=== PATIENT | female | born 1955 | race Caucasian/White ===

== ENCOUNTER → 2018-02-13 | Day surgery (SDC) | payer OTHER ==
[~2018-02-13] MED LIST: ASPIR 8181 MG PO; AZOR 5-20 MG T1 EACH PO; EPHEDRINE SULFATE INJ 50 MG/10 ML SYR IV ONE; FENTANYL CITRATE/PF 100MCG/2 ML INJ IV ONE; FLUOXETINE HCL20 M1 PO; GABAPENTIN600 MG PO; HYOSCYAMINE SULFATE 0.5 MG/ML INJ IV ONE; LIDOCAINE HCL 2% LOCAL INJ 5 ML SDV VIAL INJ ONE; METOPROLOL SUC100 MG PO; MIDAZOLAM HCL 2 MG/2 ML VIAL INJ ONE; NORCO 5-325 TA1 EACH PO; PANTOPRAZOLE 40 MG 10ML VIAL ONE; PROPOFOL IV EMULSION 10 MG/ML 50 ML VIAL IV ONE; VYTORIN 10-201 EACH PO
[2018-02-13 12:27] VITALS: BP 129/86
[2018-02-13 12:59] LABS: WBC,FECAL (FECAL LACTOFERRIN) NEGATIVE (NEGATIVE)
[2018-02-13 13:54] LABS: C DIFFICILE TOXIN A&B AMP PROB NEGATIVE (NEGATIVE)
--- NOTE | 2018-02-13 14:47 | Operative Report ---
DATE OF PROCEDURE: February 13, 2018 REFERRING PHYSICIAN: Kana Garcia MD PROCEDURES PERFORMED 1. Esophagogastroduodenoscopy. 2. Colonoscopy with polypectomy. INDICATIONS FOR EGD: Upper abdominal pain, nausea and vomiting. INDICATIONS FOR COLONOSCOPY: Chronic diarrhea and marked weight loss. MEDICATION: Patient was done under MAC. Please see anesthesiologist's note. PROCEDURE: With the patient in the left lateral decubitus position, the flexible fiberoptic Olympus gastroscope was introduced into the esophagus under direct visualization without any difficulty. There was some patchy erythema noted in the distal esophagus. A minute nodule was noted at the GE junction that was biopsied. The scope was then advanced with ease into the stomach. The mucosa overlying the antrum and the body revealed some patchy erythema and low-grade to moderate edema, and biopsies were obtained and sent to stain for H. pylori. The pyloric channel was ulcerated and strictured, and it could not be traversed with the scope. It was dilated to size 20 mm per TTS balloon dilators. It was then traversed with ease with the scope, which was advanced all the way to the 2nd portion of the duodenum. Biopsies were obtained from the proximal 2nd portion to rule out sprue. The scope was then withdrawn back into the stomach and retroflexed. The mucosa overlying the fundus and the cardia appeared to be within normal limits. The scope was then straightened out. The stomach was decompressed. Scope was subsequently withdrawn. Patient tolerated the procedure well. IMPRESSION 1. Distal esophagitis, mild. 2. Nodule at gastroesophageal junction, biopsied. 3. Gastritis, biopsied. Biopsies sent to stain for H. pylori. 4. Pyloric channel stricture, ulcerated, dilated to size 20 mm per TTS balloon dilators. 5. Rule out sprue. PLAN: Follow up histology. Initiate Protonix 40 mg 1 p.o. q.a.m. a.c. Patient might benefit from a re-evaluation of the ulcerated stricture after 2 months of therapy. The patient was then turned around. After adequate lubrication of the anal canal, a flexible fiberoptic Olympus colonoscope was inserted into the rectum with ease and advanced all the way to the cecum. It was then withdrawn slowly. Mucosa overlying the ascending, transverse, descending, and the sigmoid colon revealed some mild diffuse inflammatory changes, and random biopsies were obtained. One polyp was snared from the transverse colon. Diverticular disease was noted to involve the distal descending and sigmoid colon. Five polyps were hot biopsied from the sigmoid. Two polyps were hot biopsied from the rectum. The scope was then retroflexed into the distal rectum, and small internal hemorrhoids were noted, none of which is actively bleeding. The scope was then straightened out. It was subsequently withdrawn after securing an adequate stool specimen that was sent for the appropriate stool studies. Patient tolerated the procedure well. IMPRESSION 1. Colitis, mild. Diffuse random biopsies obtained. 2. Transverse colon polyp, snared. 3. Diverticulosis. 4. Sigmoid colon polyps times 5, hot biopsied. 5. Rectal polyps times 2, hot biopsied. 6. Internal hemorrhoids, none actively bleeding. PLAN: Follow up histology. Follow up stool studies. Initiate VSL #3 one p.o. daily and Bentyl 10 mg 1 p.o. t.i.d. Patient might benefit from a followup colonoscopy in 3 years. Job#: [id number] cc:KANA GARCIA MD
== END | disposition home or self-care (01) ==
LOC: OR 07:54
PROVIDERS: ATTEND Internal Medicine Gastroenterology
DX: K52.9 Noninfective gastroenteritis and colitis, unspecified (principal); K63.5 Polyp of colon; K62.1 Rectal polyp; K29.00 Acute gastritis without bleeding; K31.1 Adult hypertrophic pyloric stenosis; K29.50 Unspecified chronic gastritis without bleeding; B96.81 Helicobacter pylori [H. pylori] as the cause of diseases classified elsewhere; K31.89 Other diseases of stomach and duodenum; K21.0 Gastro-esophageal reflux disease with esophagitis; K22.70 Barrett's esophagus without dysplasia; K57.30 Diverticulosis of large intestine without perforation or abscess without bleeding; K64.8 Other hemorrhoids; R63.4 Abnormal weight loss; I10 Essential (primary) hypertension; M54.9 Dorsalgia, unspecified; I44.0 Atrioventricular block, first degree; E78.00 Pure hypercholesterolemia, unspecified; Z72.0 Tobacco use; F41.9 Anxiety disorder, unspecified; F32.9 Major depressive disorder, single episode, unspecified; Z01.810 Encounter for preprocedural cardiovascular examination; Z88.6 Allergy status to analgesic agent
CPT/HCPCS: 43239; 43245; 45384; 45385; 83630; 83993; 87045; 87177; 87328; 87493; 93005; J1980; J2001; J2250; 45380

== ENCOUNTER 2018-04-20 15:16 | Inpatient (IN) | payer OTHER ==
[~2018-04-20] VITALS: Ht 170.2 cm; Wt 82.6 kg
[~2018-04-20 15:16] MED LIST changes: -AMLODIPINE PO; -ASPIRIN CHEW81 MG PO; -EZETIMIBE PO; -FENTANYL CITRATE/PF 100MCG/2 ML INJ ONE; -HYDROCODON-ACE1 EA12 PO; -HYDROMORPHO1 MG/1 ML IV; -MIDAZOLAM HCL 2 MG/2 ML VIAL ONE; -OLMESARTAN PO; -PANTOPRAZOLE 40 MG 10ML VIAL ONE; -PANTOPRAZOLE SO40 MG PO; -PROPOFOL IV EMULSION 10 MG/ML 50 ML VIAL ONE; -SIMVASTATIN PO
--- OUTSIDE RECORDS SUMMARY | 2018-04-20 15:18 | XMS REPORT ---
Author Author [facility] Address Unknown Phone Unavailable Care Team Providers Care Religion Teacher Name Role Phone PONCHO HARRISON Unavailable Unavailable Problems This patient has no known problems. Allergies, Adverse Reactions, Alerts This patient has no known allergies or adverse reactions. Medications This patient has no known medications. Results Test Description Test Time Test Comments Text Results Atomic Results Result Comments ABDOMEN-1VIEW (KUB) 2018-04-20 09:13:00 [place] [address] Patient Name: BENITO GILLETTE MR #: [id number] : 1955 Age/Sex: 62/F Req #: [id number] Adm Physician: Ordered by: PONCHO HARRISON MD Report #: [id number] Location: OR Room/Bed: Procedure: [id number] DX/ABDOMEN-1VIEW (KUB) Exam Date: 04/20/18 Exam Time: 0850 REPORT STATUS: Signed Abdomen/KUB INDICATION: Postop post pyloric channel dilation [id number] patient in [facility] bay 12 COMPARISON: None. FINDINGS: Portable, supine image obtained at 0848 hours. Medical Devices: Cholecystectomy clips Bowel: There is air throughout the small bowel and large bowel without dilatation. There is mild gaseous distention of the stomach. No pneumatosis. Free air: None Calcifications: None Organomegaly: None Bones: Mild degenerative changes of the spine IMPRESSION: Unremarkable bowel gas pattern. No pneumatosis or pneumoperitoneum. Signed by: Dr. Joaquim Escalera MD on 04/20/2018 9:15 AM Dictated By: JOAQUIM ESCALERA MD 4 Transcribed By: JULIANO on 04/20/18914 COPY TO: PONCHO HARRISON MD
--- OUTSIDE RECORDS SUMMARY | 2018-04-20 15:18 | XMS REPORT | Clinical Summary ---
Author Author [facility] Address Unknown Phone Unavailable Care Team Providers Care Pyrometallurgical Engineer Name Role Phone Kana Campos MD PCP [...] Taken Vital Sign Reading 03/27/2018 7:00 PM TIRE BLADDER MAKER Blood Pressure 147/81 03/27/2018 7:00 PM TIRE BLADDER MAKER Pulse 50 03/27/2018 7:00 PM TIRE BLADDER MAKER Temperature 36.3 C (97.4 F) 03/27/2018 7:00 PM TIRE BLADDER MAKER Respiratory Rate 20 03/27/2018 7:00 PM TIRE BLADDER MAKER Oxygen Saturation 98% - Inhaled Oxygen - Concentration 03/27/2018 5:09 PM TIRE BLADDER MAKER Weight 72.6 kg (160 lb) 03/27/2018 5:09 PM TIRE BLADDER MAKER Height 170.2 cm (5' 7") 03/27/2018 5:09 PM TIRE BLADDER MAKER Body Mass Index 25.06 Plan of Treatment Health Maintenance Due Date Last Done Comments CERVICAL CANCER SCREENING 1974 BREAST CANCER SCREENING 12/17/2003 COLON CANCER SCREENING 12/17/2003 SHINGLES VACCINES (1 of 12/17/2003 2) INFLUENZA VACCINE 11/12/2017 Procedures Comments Procedure Name Priority Date/Time Associated Diagnosis XR FINGER 2+ VW LEFT STAT 03/27/2018 5:50 [address] HEAD WO CONTRAST STAT 03/27/2018 5:27 PM TIRE BLADDER MAKER after 04/19/2017 Results * XR Finger 2+ Vw Left (03/27/2018 5:50 PM TIRE BLADDER MAKER) Narrative Performed At EXAMINATION:XR FINGER 2VW LEFT [...] No acute bony abnormality left fourth digit [id number] Procedure Note Hm Interface, Radiology Results Incoming - 03/27/2018 5:56 PM TIRE BLADDER MAKER EXAMINATION: XR FINGER 2 VW LEFT CLINICAL [...] No acute bony abnormality left fourth digit [id number] Performing Organization Address City/State/Zipcode Phone Number [facility] [address] [place] [address] * CT Head Wo Contrast (03/27/2018 5:27 PM TIRE BLADDER MAKER) Narrative Performed At EXAMINATION: CT HEAD WO [...] seen. IMPRESSION: No acute intracranial abnormality identified. [id number] Procedure Note Hm Interface, Radiology Results Incoming - 03/27/2018 5:33 PM TIRE BLADDER MAKER EXAMINATION: CT HEAD WO CONTRAST CLINICAL HISTORY: [...] seen. IMPRESSION: No acute intracranial abnormality identified. [facility]-[id number] Performing Organization Address City/State/Zipcode Phone Number [facility] [address] [place] [address] after 04/19/2017 Insurance Payer Benefit Subscriber ID Type Phone Address Plan / Group AETNA AETNA xxxxxxxxxx HMO HMO,POS,EP O, MC/EC Advance Directives Patient has advance care planning documents on file. For more information, stanley villegas contact: Satya Belcher [address] [place] [address]
[2018-04-20] MEDS ORDERED: SODIUM CHLORIDE 0.9% 1000ML 1,000 ML ONE (16:19)
[2018-04-20] MEDS ORDERED: SODIUM CHLORIDE 0.9% 1000ML 1,000 ML IV STA (16:19)
[2018-04-20] MEDS ORDERED: PANTOPRAZOLE 40 MG 10ML VIAL IV STA ×2 (16:19→20:00)
[2018-04-20] MEDS ORDERED: ONDANSETRON HCL INJ 2MG/ML 2ML 2 MG/ML VIAL IV STA ×2 (16:32→19:07)
[2018-04-20] MEDS ORDERED: DIATRIZOATE MEGL/DIATRIZOA SOD 30 ML BTL PO ONE (16:37)
[2018-04-20 17:03] LABS: BASOPHILS # (AUTO) 0.1 (0.0-0.1); BASOPHILS % 0.7 % (0.0-1.0); EOSINOPHILS # (AUTO) 0.1 (0.0-0.4); EOSINOPHILS % 1.1 % (0.0-6.0); HEMATOCRIT 39.2 % (34.2-44.1); HEMOGLOBIN 13.4 g/dL (12.0-16.0); LYMPHOCYTES # (AUTO) 1.9 (1.0-3.2); LYMPHOCYTES % 18.5 % (18.0-39.1); MEAN CORPUSCULAR HEMOGLOBIN 32.4 pg (28-32); MEAN CORPUSCULAR HGB CONC 34.2 g/dL (31-35); MEAN CORPUSCULAR VOLUME 94.9 fL (81-99); MONOCYTES # (AUTO) 0.4 (0.2-0.8); MONOCYTES % 3.6 % (4.4-11.3); NEUTROPHILS # (AUTO) 7.9 (2.1-6.9); NEUTROPHILS % 75.6 % (38.7-80.0); PLATELET COUNT 220 x10e3/uL (140-360); RED BLOOD COUNT 4.13 x10e6/uL (3.6-5.1); RED CELL DISTRIBUTION WIDTH 13.2 % (11.7-14.4)
[2018-04-20 17:08] LABS: INR 0.87; PROTHROMBIN TIME 12.6 seconds (11.9-14.5)
[2018-04-20 17:09] LABS: PARTIAL THROMBOPLASTIN TIME 24.5 seconds (23.8-35.5)
[2018-04-20 17:18] LABS: ALANINE AMINOTRANSFERASE 14 IU/L (0-55); ALBUMIN 3.6 g/dL (3.5-5.0); ALBUMIN/GLOBULIN RATIO 1.4 (0.8-2.0); ALKALINE PHOSPHATASE 51 IU/L (40-150); AMYLASE 45 U/L (25-125); ANION GAP 11.2 mmol/L (8-16); BLOOD UREA NITROGEN 15 mg/dL (7-26); BUN/CREATININE RATIO 17 (6-25); CARBON DIOXIDE 28 mmol/L (22-29); CHLORIDE 103 mmol/L (98-107); CREATINE KINASE 25 IU/L (29-168); CREATININE, SERUM 0.86 mg/dL (0.57-1.11); EST GLOMERULAR FILTRATION RATE > 60 ML/MIN (60-); GLUCOSE 118 mg/dL (74-118); LIPASE 42 U/L (8-78); POTASSIUM 3.2 mmol/L (3.5-5.1); SODIUM 139 mmol/L (136-145)
[2018-04-20] MEDS ORDERED: MORPHINE SULFATE 2 MG/ML SYR 1ML IV STA (17:23)
[2018-04-20] MEDS ORDERED: FENTANYL CITRATE/PF 100MCG/2 ML INJ IV NR (17:45)
[2018-04-20] MEDS ORDERED: KCL 20MEQ/.9 SOD CHL 1,000 ML IV ONE (18:45)
[2018-04-20] MEDS ORDERED: BENZOCAINE/TETRACAINE/BUTAMBEN AERO SPRAY 56 GM CAN TOP ONE (18:45)
--- NOTE | 2018-04-20 18:58 | Diagnostic Imaging Report ---
EXAM: CT Abdomen and Pelvis WITHOUT contrast INDICATION: Series stomach pain status post esophagoscopy with outpatient. Hypotensive. Nausea. COMPARISON: None. TECHNIQUE: Abdomen and pelvis were scanned utilizing a multidetector helical scanner from the lung base to the pubic symphysis without administration of IV contrast. Absence of intravenous contrast decreases sensitivity for detection of focal lesions and vascular pathology. Coronal and sagittal reformations were obtained. Routine protocol was performed. IV CONTRAST: None. ORAL CONTRAST: Gastrografin water mixture. RAD[facility] DOSE: Total DLP: 509.99 mGy*cm Estimated effective dose: (DLP x 0.015 x size factor) mSv COMPLICATIONS: None FINDINGS: LINES and TUBES: None. LOWER THORAX: Unremarkable HEPATOBILIARY: No focal hepatic lesions. No biliary ductal dilation. GALLBLADDER: Surgically absent. SPLEEN: No splenomegaly. PANCREAS: No focal masses or ductal dilatation. ADRENALS: No adrenal nodules. KIDNEYS/URETERS: No hydronephrosis. No cystic or solid mass lesions. 1.3 cm calculus in the left renal pelvis on image 40 series 2. GI TRACT: No abnormal wall thickening. No bowel dilatation to suggest obstruction. Evaluation of intestines is limited as oral contrast is within the stomach proximal to the antrum at the time of the examination. Scattered sigmoid diverticula without CT evidence of diverticulitis. Appendix is normal. PELVIC ORGANS/BLADDER: The uterus is surgically absent. LYMPH NODES: No lymphadenopathy. VESSELS: Cortical secretions of the aorta and iliac arteries without aneurysmal dilatation. PERITONEUM / RETROPERITONEUM: Small gas bubbles scattered in the antwon hepatis anteriorly as seen on axial image 27 series 2, between the medial and lateral segments of the left hepatic lobe inferiorly on image 33, consistent with a small volume pneumoperitoneum. There is stranding of the peritoneal fat anterior and surrounding the distal gastric antrum and pylorus as seen on axial image 34 series 2. BONES: Multilevel degenerative changes of the thoracolumbar spine. SOFT TISSUES: Unremarkable. IMPRESSION: 1. Trace pneumoperitoneum and stranding of the fat about the gastric antrum consistent with perforated hollow viscus, likely distal gastric antrum/pylorus versus less likely the first portion of the duodenum. 2. Sigmoid diverticulosis without diverticulitis. 3. 1.3 cm nonobstructing calculus in the lower pole of the left kidney. No hydronephrosis. Findings discussed with Dr. Vallejo at 6:35 PM on Signed by: Dr. Era Springer M.D. on 04/20/2018 6:55 PM
[2018-04-20] MEDS ORDERED: FENTANYL CITRATE/PF 100MCG/2 ML INJ ONE (19:12)
[2018-04-20] MEDS ORDERED: FENTANYL CITRATE/PF 100MCG/2 ML INJ IV ONE (19:15)
--- NOTE | 2018-04-20 19:26 | Diagnostic Imaging Report ---
EXAMINATION: CHEST SINGLE (PORTABLE) INDICATION: S/P EGD WITH ESOPHAGEAL DILATION, NOW ABD PAIN HYPOTENSIVE COMPARISON: None FINDINGS: TUBES and LINES: None. LUNGS: Mild left basilar subsegmental atelectasis. There is no evidence of pneumonia or pulmonary edema. PLEURA: No pleural effusion or pneumothorax. HEART AND MEDIASTINUM: The cardiac silhouette is moderately enlarged. Calcification of the aortic arch. The cardiac silhouette is mildly enlarged. BONES AND SOFT TISSUES: No acute osseous lesion. Soft tissues are unremarkable. UPPER ABDOMEN: No free air under the diaphragm. IMPRESSION: Left basilar subsegmental atelectasis. No acute thoracic abnormality. Signed by: Dr. Era Springer M.D. on 04/20/2018 7:22 PM
[2018-04-20] MEDS: METRONIDAZOLE 500MG/NS 100ML 100 ML IV SCH (19:56)
[2018-04-20] MEDS ORDERED: PROTONIX 200MG/SODIUM CHLORIDE 0.9% 250 ML BAG IV SCH (20:00)
[2018-04-20] MEDS ORDERED: HYDROMORPHONE 1MG/1ML INJ IV PRN (20:15)
[2018-04-20] MEDS: SODIUM CHLORIDE 0.9% 1000ML 1,000 ML IV SCH (20:26)
--- OUTSIDE RECORDS SUMMARY | 2018-04-20 20:39 | XMS REPORT | Clinical Summary ---
Author Author [facility] Address Unknown Phone Unavailable Care Team Providers Care Theater Education Teacher Name Role Phone Kana Campos MD PCP [...] Care Team Description Date Type Specialty Sofy Dvaila DO Fall, initial encounter (Primary Dx); Contusion [...] Taken Vital Sign Reading 03/27/2018 7:00 PM VIDEO GAME ANIMATOR Blood Pressure 147/81 03/27/2018 7:00 PM VIDEO GAME ANIMATOR Pulse 50 03/27/2018 7:00 PM VIDEO GAME ANIMATOR Temperature 36.3 C (97.4 F) 03/27/2018 7:00 PM VIDEO GAME ANIMATOR Respiratory Rate 20 03/27/2018 7:00 PM VIDEO GAME ANIMATOR Oxygen Saturation 98% - Inhaled Oxygen - Concentration 03/27/2018 5:09 PM VIDEO GAME ANIMATOR Weight 72.6 kg (160 lb) 03/27/2018 5:09 PM VIDEO GAME ANIMATOR Height 170.2 cm (5' 7") 03/27/2018 5:09 PM VIDEO GAME ANIMATOR Body Mass Index 25.06 Plan of Treatment Health Maintenance Due Date Last Done Comments CERVICAL CANCER SCREENING 1974 BREAST CANCER SCREENING 12/17/2003 COLON CANCER SCREENING 12/17/2003 SHINGLES VACCINES (1 of 12/17/2003 2) INFLUENZA VACCINE 11/12/2017 Procedures Comments Procedure Name Priority Date/Time Associated Diagnosis XR FINGER 2+ VW LEFT STAT 03/27/2018 5:[address] HEAD WO CONTRAST STAT 03/27/2018 5:27 PM VIDEO GAME ANIMATOR after 04/19/2017 Results * XR Finger 2+ Vw Left (03/27/2018 5:50 PM VIDEO GAME ANIMATOR) Narrative Performed At EXAMINATION:XR FINGER 2VW LEFT [...] No acute bony abnormality left fourth digit [id number] Procedure Note Hm Interface, Radiology Results Incoming - 03/27/2018 5:56 PM VIDEO GAME ANIMATOR EXAMINATION: XR FINGER 2 VW LEFT CLINICAL [...] No acute bony abnormality left fourth digit [id number] Performing Organization Address City/State/Zipcode Phone Number [facility] [address] [place] [address] * CT Head Wo Contrast (03/27/2018 5:27 PM VIDEO GAME ANIMATOR) Narrative Performed At EXAMINATION: CT HEAD WO [...] seen. IMPRESSION: No acute intracranial abnormality identified. [facility]-[id number] Procedure Note Hm Interface, Radiology Results Incoming - 03/27/2018 5:33 PM VIDEO GAME ANIMATOR EXAMINATION: CT HEAD WO CONTRAST CLINICAL HISTORY: [...] seen. IMPRESSION: No acute intracranial abnormality identified. [facility]-[id number] Performing Organization Address City/State/Zipcode Phone Number [facility] [address] [place] [address] after 04/19/2017 Insurance Payer Benefit Subscriber ID Type Phone Address Plan / Group AETNA AETNA xxxxxxxxxx HMO HMO,POS,EP O, MC/EC Advance Directives Patient has advance care planning documents on file. For more information, stanley villegas contact: Satya Belcher [address] [place] [address]
[2018-04-20] MEDS: PIPER-TAZ 3.375 GM 50 ML IV SCH (21:04)
[2018-04-20] MEDS: PANTOPRAZOL 40MG/SOD CHL 0.9% 50 ML IV SCH (21:04)
[2018-04-20] MEDS: ONDANSETRON HCL INJ 2MG/ML 2ML 2 MG/ML VIAL IV PRN (22:36)
[2018-04-20] MEDS: HYDROMORPHONE 2MG/ML 2 MG/ML ML IV PRN (22:37)
[2018-04-21] VITALS (7 sets, daily range): BP systolic 89–117; BP diastolic 51–67
[2018-04-21] MEDS: PIPER-TAZ 3.375 GM 50 ML IV SCH ×4 (00:25→18:51)
[2018-04-21] MEDS: METRONIDAZOLE 500MG/NS 100ML 100 ML IV SCH ×5 (01:51→23:55)
[2018-04-21] MEDS: PANTOPRAZOL 40MG/SOD CHL 0.9% 50 ML IV SCH ×5 (03:42→23:33)
[2018-04-21] MEDS: ONDANSETRON HCL INJ 2MG/ML 2ML 2 MG/ML VIAL IV PRN ×2 (03:43→12:05)
[2018-04-21] MEDS: HYDROMORPHONE 2MG/ML 2 MG/ML ML IV PRN ×4 (03:43→17:08)
--- NOTE | 2018-04-21 03:43 | NUR ---
RECEIVED REPORT FROM Alexander ANTHONY RN. PT COMPLAINS OF ABD PAIN, 01/21. NAUSEA. MEDICATED PER ORDERS. AWAKE ALERT SKIN W/D RESP NONLAB. NAD NOTED.
[2018-04-21] MEDS: SODIUM CHLORIDE 0.9% 1000ML 1,000 ML IV SCH ×3 (05:49→20:01)
[2018-04-21 06:42] LABS: BASOPHILS % 0.2 % (0.0-1.0); EOSINOPHILS % 0.1 % (0.0-6.0); HEMATOCRIT 36.1 % (34.2-44.1); HEMOGLOBIN 11.8 g/dL (12.0-16.0); LYMPHOCYTES # (AUTO) 1.3 (1.0-3.2); LYMPHOCYTES % 13.4 % (18.0-39.1); MEAN CORPUSCULAR HEMOGLOBIN 31.6 pg (28-32); MEAN CORPUSCULAR HGB CONC 32.7 g/dL (31-35); MEAN CORPUSCULAR VOLUME 96.5 fL (81-99); MONOCYTES # (AUTO) 0.6 (0.2-0.8); MONOCYTES % 5.8 % (4.4-11.3); NEUTROPHILS # (AUTO) 7.6 (2.1-6.9); NEUTROPHILS % 80.3 % (38.7-80.0); PLATELET COUNT 178 x10e3/uL (140-360); RED BLOOD COUNT 3.74 x10e6/uL (3.6-5.1); RED CELL DISTRIBUTION WIDTH 13.5 % (11.7-14.4)
[2018-04-21 07:02] LABS: ALANINE AMINOTRANSFERASE 198 IU/L (0-55); ALBUMIN/GLOBULIN RATIO 1.2 (0.8-2.0); ALKALINE PHOSPHATASE 60 IU/L (40-150); ANION GAP 11.8 mmol/L (8-16); BLOOD UREA NITROGEN 17 mg/dL (7-26); BUN/CREATININE RATIO 20 (6-25); CALCIUM 8.3 mg/dL (8.4-10.2); CARBON DIOXIDE 26 mmol/L (22-29); CHLORIDE 108 mmol/L (98-107); CREATININE, SERUM 0.85 mg/dL (0.57-1.11); EST GLOMERULAR FILTRATION RATE > 60 ML/MIN (60-); GLUCOSE 112 mg/dL (74-118); POTASSIUM 3.8 mmol/L (3.5-5.1); SODIUM 142 mmol/L (136-145)
--- NOTE | 2018-04-21 07:02 | NUR ---
REPORT TO CRISELDA MATTA
--- NOTE | 2018-04-21 07:44 | NUR ---
patient received awake and alert. see shift assess. sinus rhythm. NGT to left nare with green/brown output. BP bouncing up and down but MAP staying above 60. will monitor status closely.
--- NOTE | 2018-04-21 09:15 | NUR ---
ASSUMED CARE AT THIS TIME. PATIENT LAYING IN BED WITH EYES CLOSED, EASILY ARROUSABLE TO VERBAL STIMULI. RESP EVEN AND UNLABORED. SKIN WARM AND DRY. NO SIGNS OF ACUTE DISTRESS NOT AT THIS TIME. FAMILY AT BEDSIDE.
--- NOTE | 2018-04-21 11:20 | NUR ---
VERBAL REPORT GIVEN TO CRISELDA MURILLO.
[2018-04-21] MEDS ORDERED: HYDROMORPHO1 MG/1 ML IV (11:24)
[2018-04-21] MEDS ORDERED: DIATRIZOATE MEGL/DIATRIZOA SOD 30 ML BTL PO ONE (15:48)
--- NOTE | 2018-04-21 16:25 | Diagnostic Imaging Report ---
EXAM: Abdomen 3 Views INDICATION: ^FREE AIR? ^[id number] ^1603 COMPARISON: CT dated 04/20/2018 FINDINGS: Nasogastric tube in place with tip overlying gastric body. Nonobstructive bowel gas pattern. No definite signs of pneumoperitoneum. Oral contrast from prior CT is seen within colon. Right upper quadrant surgical clips, likely related to cholecystectomy. No acute osseous abnormality. Trace bilateral pleural effusions. IMPRESSION: 1. No definite evidence of pneumoperitoneum. Signed by: Dr. Laurent Sarmiento MD on 04/21/2018 4:22 PM
--- NOTE | 2018-04-21 18:11 | NUR ---
Received patient sleepy and easily arousable, connected to cardiac monitoring, no s/s of distress and 02 @ 2L NC, NGT to LIWS, and l ac and r fa piv, NS @ 125 mls/hr and protonix drip @ 10 mls/hr infusing w/o complications, family at bedside and updated on POC, bed low and locked, call majano in reach
--- NOTE | 2018-04-21 18:16 | Diagnostic Imaging Report ---
EXAM: CT Abdomen and Pelvis WITHOUT contrast INDICATION: Pneumoperitoneum on the prior examination. COMPARISON: 04/20/08. TECHNIQUE: Abdomen and pelvis were scanned utilizing a multidetector helical scanner from the lung base to the pubic symphysis without administration of IV contrast. Absence of intravenous contrast decreases sensitivity for detection of focal lesions and vascular pathology. Coronal and sagittal reformations were obtained. Routine protocol was performed. IV CONTRAST: None. ORAL CONTRAST: Water RADIATION DOSE: Total DLP: 599.22 mGy*cm Estimated effective dose: (DLP x 0.015 x size factor) mSv COMPLICATIONS: None FINDINGS: LINES and TUBES: NG tube with distal tip within the gastric body. LOWER THORAX: Trace pleural effusion bilaterally associated with bibasilar subsegmental atelectasis. HEPATOBILIARY: No focal hepatic lesions. No biliary ductal dilation. GALLBLADDER: Surgically absent. SPLEEN: No splenomegaly. PANCREAS: No focal masses or ductal dilatation. ADRENALS: No adrenal nodules KIDNEYS/URETERS: No hydronephrosis. No cystic or solid mass lesions. subsegmental atelectasis versus is likely developing pneumonia in the proper clinical setting. GI TRACT: No bowel dilatation to suggest obstruction. Contrast is present within the stomach, small bowel loops and colon without evidence of extraluminal contrast extravasation. There is mild diffuse wall thickening of the gastric antrum and pylorus. There is Appendix is normal. PELVIC ORGANS/BLADDER: Urinary bladder is decompressed by Sol catheter. Status post hysterectomy. LYMPH NODES: No lymphadenopathy. VESSELS: There is mild atherosclerotic disease in the aorta and major arterial branches. PERITONEUM / RETROPERITONEUM: Mild pneumoperitoneum again observed, with a larger gas bubble between the medial and lateral segments of the left hepatic lobe measuring 8 mm on image 31 series 2. Multiple small gas bubbles are present in the anterior superior abdomen as seen on axial images 16 and 17 series 2. There is interval increase in stranding about the gastric antrum and right upper quadrant superior to the hepatic flexure of the colon, as well as new fat stranding in the mesentery in the mid abdomen anteriorly just superior to the transverse colon. BONES: No acute abnormality. No change. SOFT TISSUES: Unremarkable. IMPRESSION: 1. Small volume pneumoperitoneum is again observed, with a small, however larger gas bubble inferior to the liver between the medial and lateral segments of the left lobe, as well as in the superior anterior abdomen. No extra luminal contrast extravasation. 2. Diffuse wall thickening of the gastric antrum and pylorus, with mild increase in the perigastric fat stranding without fluid collections. Signed by: Dr. Era Springer M.D. on 04/21/2018 6:13 PM
--- NOTE | 2018-04-21 19:15 | NUR ---
Report received from AM nurse Liliane. Patient received alert but little drowsy resting on her bed. Patient's sister at the bedside. Denied pain and no SOB.No respiratory distress noted. Patient continued on 2liter oxygen via nasal canula and NG tube continued. Head to toe assessment completed. No skin breakdown noted.Bed in lower position,locked. Patient instructed to call for help as needed.Call bed within reach. Will continue to monitor.
--- NOTE | 2018-04-21 20:15 | NUR ---
Dr.M Iraheta round the patient. NNO.
[2018-04-22] VITALS (18 sets, daily range): BP systolic 90–138; BP diastolic 52–72
[2018-04-22] MEDS: PIPER-TAZ 3.375 GM 50 ML IV SCH ×4 (00:06→19:15)
[2018-04-22] MEDS: ONDANSETRON HCL INJ 2MG/ML 2ML 2 MG/ML VIAL IV PRN (02:49)
[2018-04-22] MEDS: HYDROMORPHONE 2MG/ML 2 MG/ML ML IV PRN (02:49)
[2018-04-22] MEDS: PANTOPRAZOL 40MG/SOD CHL 0.9% 50 ML IV SCH ×2 (04:16→08:00)
[2018-04-22 05:15] LABS: BASOPHILS % 0.2 % (0.0-1.0); HEMATOCRIT 34.6 % (34.2-44.1); HEMOGLOBIN 11.3 g/dL (12.0-16.0); LYMPHOCYTES # (AUTO) 0.9 (1.0-3.2); LYMPHOCYTES % 7.6 % (18.0-39.1); MEAN CORPUSCULAR HEMOGLOBIN 32.1 pg (28-32); MEAN CORPUSCULAR HGB CONC 32.7 g/dL (31-35); MEAN CORPUSCULAR VOLUME 98.3 fL (81-99); MONOCYTES # (AUTO) 0.6 (0.2-0.8); NEUTROPHILS % 86.4 % (38.7-80.0); PLATELET COUNT 156 x10e3/uL (140-360); RED BLOOD COUNT 3.52 x10e6/uL (3.6-5.1); RED CELL DISTRIBUTION WIDTH 13.6 % (11.7-14.4)
[2018-04-22 05:34] LABS: ALANINE AMINOTRANSFERASE 110 IU/L (0-55); ALBUMIN 2.9 g/dL (3.5-5.0); ALBUMIN/GLOBULIN RATIO 1.2 (0.8-2.0); ALKALINE PHOSPHATASE 56 IU/L (40-150); ANION GAP 9.5 mmol/L (8-16); BLOOD UREA NITROGEN 23 mg/dL (7-26); BUN/CREATININE RATIO 28 (6-25); CALCIUM 8.6 mg/dL (8.4-10.2); CARBON DIOXIDE 26 mmol/L (22-29); CHLORIDE 107 mmol/L (98-107); CREATININE, SERUM 0.82 mg/dL (0.57-1.11); EST GLOMERULAR FILTRATION RATE > 60 ML/MIN (60-); GLUCOSE 101 mg/dL (74-118); POTASSIUM 3.5 mmol/L (3.5-5.1); SODIUM 139 mmol/L (136-145)
[2018-04-22] MEDS: METRONIDAZOLE 500MG/NS 100ML 100 ML IV SCH ×3 (05:36→20:03)
[2018-04-22 06:32] LABS: BILIRUBIN,URINE 1+ (NEGATIVE); CLARITY,URINE CLOUDY (CLEAR); COLOR,URINE YELLOW (YELLOW); KETONES,URINE NEGATIVE (NEGATIVE); LEUKOCYTE ESTERASE ,URINE TRACE (NEGATIVE); NITRITE,URINE NEGATIVE (NEGATIVE); PROTEIN,URINE DIPSTICK TRACE (NEGATIVE); URINE UROBILINOGEN 1 mg/dL (0.2 - 1)
[2018-04-22 06:51] LABS: WBC,URINE (MAN) 21-50 /HPF (0-5)
[2018-04-22 06:52] LABS: BACTERIA,URINE FEW /HPF; EPITHELIAL CELLS,URINE RARE /LPF
--- NOTE | 2018-04-22 07:05 | NUR ---
REPORT GIVEN TO UPCOMING NURSE,WALKING ROUND DONE.
[2018-04-22] MEDS ORDERED: SUGAMMADEX SODIUM 200 MG/2 ML VIAL IV ONE (07:24)
--- NOTE | 2018-04-22 08:00 | NUR ---
2nd CHG bath provided. Reviewed chart and patient condition with Dr Chacon, anesthesiology. EKG done, dentures removed. 0820 Patient to Pre Op holding with family at bedside.
[2018-04-22] MEDS ORDERED: NALOXONE HCL INJ 0.4 MG/ML AMP IV PRN (11:45)
[2018-04-22] MEDS ORDERED: HYDROMORPHONE 0.2MG/ML-SOD CHL 30ML PCA SYRINGE IV PRN ×2 (11:45→19:15)
[2018-04-22] MEDS ORDERED: ACETAMINOPHEN 1000 MG/100 ML IV PRN (11:45)
[2018-04-22] MEDS ORDERED: HYDROMORPHONE 2MG/ML 2 MG/ML ML ONE (11:49)
[2018-04-22] MEDS ORDERED: HYDROMORPHONE 0.2MG/ML-SOD CHL 30ML PCA SYRINGE IV ONE (11:53)
--- NOTE | 2018-04-22 11:54 | NUR ---
Verbal report given to CRISELDA Mars for ICU 191.
[2018-04-22] MEDS: SODIUM CHLORIDE 0.9% 1000ML 1,000 ML IV SCH ×3 (12:01→21:44)
--- NOTE | 2018-04-22 12:45 | NUR ---
received patient to bed 191, report from juancarlos edgar. patient is on o2 mask, drowsy, on passenger attendant pump. vss.
[2018-04-22] MEDS: SODIUM CHLORIDE 0.9% 250ML IRRIG IR SCH ×4 (13:30→22:37)
--- NOTE | 2018-04-22 13:32 | Operative Report ---
DATE OF PROCEDURE: April 22, 2018 PREOPERATIVE DIAGNOSIS: Gastric outlet obstruction with sealed perforation. POSTOPERATIVE DIAGNOSIS: Gastric outlet obstruction with sealed perforation. OPERATIONS PERFORMED: 1. Exploratory laparotomy. 2. Bilateral truncal vagotomies. 3. Antrectomy with Luis-en-Y reconstruction. SPORTS NUTRITIONIST: Dr. Russell Raymundo. ANESTHESIA: General endotracheal. COMPLICATIONS: None. ESTIMATED BLOOD LOSS: 75 mL. DESCRIPTION OF PROCEDURE: With the patient lying in bed in the supine position under good general endotracheal anesthesia, the abdomen was prepped with Betadine solution and draped in the usual manner. An upper midline abdominal incision was made. It was carried down through the subcutaneous tissue down to the midline fascia. The midline fascia was opened. The peritoneum was opened, and the abdomen was entered. Upon entering the abdominal cavity, exploration revealed that there was a little bit of fibrinous material overlying the first portion of the duodenum. There was minimal fluid in the subhepatic space. The patient obviously had had a small perforation that had sealed off, and there was a minimal amount of leakage. There was no fluid in the rest of the abdominal cavity. The stomach itself was rather thick-walled and tubular, consistent with a hypertrophic stomach secondary to the long-standing gastric outlet obstruction. The rest of the abdominal exploration showed her to have some adhesions from her previous cholecystectomy but was otherwise within normal limits. We decided to go ahead and proceed with the planned operation. The esophagus was then isolated, and the anterior and posterior vagi were individually identified and bilateral truncal vagotomies were performed. The specimen was sent for pathological examination. Hemostasis was ascertained. After this was done, the lesser sac was then entered and using the Enseal device, the greater curvature of the distal stomach was then freed up from the lesser omentum using the Enseal device. Similarly, the lesser curvature was taken down. The duodenum was then slowly and carefully dissected. There was some fibrinous material in the anterior aspect, and all of this was cleared off; and once got below where the perforation more than likely was, the duodenum was then stapled with a TA-60 stapler and divided, removing the area of stricture along with the perforation. Similarly, the proximal stomach was then divided at the mid aspect, removing all of the antrum with an application of the TA-90 heavy wire stapler. The specimen was sent for pathological examination. Both suture lines were then reinforced with silk suture. The ligament of Treitz was then identified, and distal to the ligament of Treitz the small bowel was then divided with an application of the BETO-75 stapler. A tunnel was created in a retrocolic fashion, and the distal limb of the small bowel was brought up into the upper stomach and a gastrojejunostomy was then performed with another application of the BETO-75 stapler with the remaining rent being closed with a TA-60 stapler. The anastomosis was further reinforced with 2-0 silk sutures. The nasogastric tube was then properly placed in the gastric pouch, and then 50 cm distal to the gastrojejunostomy a jejunostomy was performed with another application of the BETO-75 stapler. The remaining opening was closed with a TA-60 stapler, and this was reinforced with 3-0 silk. The mesenteric rent was closed, and after this was done the abdomen was then copiously irrigated. Hemostasis was ascertained, and the abdomen was then closed in layers. The peritoneum was closed with a running suture of number 1 Vicryl, the midline fascia was closed with a running suture of number 1 Vicryl, and the skin was closed with clips. A dressing was applied. The sponge, lap and needle count was correct. The patient tolerated the procedure well and returned to the recovery room in stable condition. Job#: [id number] GREGG
--- NOTE | 2018-04-22 15:03 | NUR ---
Nutrition Intervention Note RD Recommendation(s) for Physician: - Per surgeon's discretion, ADAT to goal of GI Soft - Recommend Ensure Clear TID when diet advanced - If unable to advance diet consult nutrition for PN recommendations Plan of Care: RD following, monitoring for tolerance and adequacy Nutrition reason for involvement: Nutrition Risk Trigger- [facility] RD Assessment 04/22: 62 YOF admitted for acute gastric perforation, evaluated today per [facility] trigger. Pt out of room for GI surgery at time of visit for ex-lap and "part of stomach to be removed" per RN during am rounds. Prior to surgery pt had NGT to LIWS with brown output. Pt with significant GI PMH. Unable to obtain nutrition hx at this time. Chart reviewed. Will continue to monitor. Principal Problems/Diagnoses: acute gastric perforation PMH: acute gastritis, Childers's esophagus, diverticulosis of large intestine, GERD, esophagitis, gastroenteritis GI: + NGT to LIWS, + gastric perforation s/p ex-lap gastric drainage of 125 ml per chart Skin: abdominal incision Labs: 04/22: Na 139, K 3.5, BUN 23, Cr 0.82, Gluc 101, Ca 8.6, AST 61, ALT 110 Meds: abx, zofran, pantoprazole, dilaudid Ht: 67 in Wt: 172 lb BMI: 26.9 IBW: 135 lb Malnutrition Evaluation (04/22/18) The patient does not meet criteria for a specified degree of malnutrition at this time. Will re-evaluate at follow-up as appropriate. Pt out of room at time of visit, unable to assess at this time- will re-assess on follow up. Nutrition Prescription (Diet Order): NPO Estimated Nutritional Needs: 2482-1787 calories/day (18-20 kcal/kg CBW) 78-117 g protein/day (1-1.5 g pro/kg CBW) Diet Adequacy: Not meeting calorie needs, Not meeting protein needs Diet Education Needs Assessment: Diet education not indicated, patient on temporary/transition diet. Nutrition Care Level: High Nutrition Diagnosis: Inadequate energy intake and protein intake related to gastric perforation as evidenced by NPO and requiring surgical intervention. Goal: Patient will meet 75-100% of estimated needs by follow up Progress: N/A Interventions: Fluid and fiber modified diet, Commercial beverage, Collaboration with other providers Monitoring/Evaluation: Total energy intake, Total protein intake, Modified diet, Liquid supplement Signed: Edith Kasper RD, LD, [facility]
[2018-04-22] MEDS ORDERED: DESFLURANE 240 ML BTL INH ONE (18:34)
[2018-04-22] MEDS ORDERED: PROPOFOL IV EMULSION 10 MG/ML 20 ML VIAL ONE (18:34)
[2018-04-22] MEDS ORDERED: EPHEDRINE SULFATE INJ 50 MG/10 ML SYR ONE (18:34)
[2018-04-22] MEDS ORDERED: LIDOCAINE HCL 2% LOCAL INJ 5 ML SDV VIAL INJ ONE (18:34)
[2018-04-22] MEDS ORDERED: ONDANSETRON HCL INJ 2MG/ML 2ML 2 MG/ML VIAL ONE (18:34)
[2018-04-22] MEDS ORDERED: DEXAMETHASONE SOD PHOS INJ 4 MG/ML VIAL ONE (18:34)
[2018-04-22] MEDS ORDERED: ROCURONIUM BROMIDE 10 MG/ML 5ML VIAL ONE (18:34)
[2018-04-22] MEDS ORDERED: ACETAMINOPHEN 1000 MG/100 ML IV ONE (18:34)
--- NOTE | 2018-04-22 19:00 | NUR ---
Bedside report received from Madisyn Acosta RN. Pt received resting in bed with eyes closed, awakens to voice commands, ASSISTANT LIBRARIAN per md orders, rr 14, spo2 97% on 3L nc, no signs of distress noted at this time. Pt family including her is at the bedside. Sol to gravity. Bed in lowest and locked position, call light and dental coordinator control in reach of the pt. No signs of discomfort at this time. Care plan reviewed with AM RN and pt family.
--- NOTE | 2018-04-22 19:15 | NUR ---
Dr. Gume Raymundo present and assessing the pt. Notified him of +1 edema to pts left arm and he assessed at this time, no new orders received, pts arm elevated on a pillow. New DIET TECHNICIAN REGISTERED orders received to stop basal rate and completed at this time with Madisyn Acosta RN. Dr. Raymundo spoke with the pts family at this time.
[2018-04-22] MEDS ORDERED: MIDAZOLAM HCL 2 MG/2 ML VIAL ONE (21:37)
[2018-04-22] MEDS ORDERED: FENTANYL CITRATE/PF 100MCG/2 ML INJ ONE (21:37)
[2018-04-23] VITALS (24 sets, daily range): BP systolic 127–161; BP diastolic 68–123
--- NOTE | 2018-04-23 00:15 | NUR ---
Dr. Vaibhav Iraheta present and assessing the pt. Pt's sister is at bedside at this time as well.
--- NOTE | 2018-04-23 00:30 | NUR ---
Pt offered mouth swabs and chapstick for dry mouth and lips and refuses both. Pt's sister present at the bedside and witnessed.
[2018-04-23] MEDS: PIPER-TAZ 3.375 GM 50 ML IV SCH ×4 (00:35→18:15)
[2018-04-23] MEDS: METRONIDAZOLE 500MG/NS 100ML 100 ML IV SCH ×4 (00:50→18:15)
--- NOTE | 2018-04-23 01:20 | NUR ---
Received patient hemodynamically stable, on a Dilaudid [employer] VP pump. Pain score below a 3. No complaints raised
[2018-04-23] MEDS: SODIUM CHLORIDE 0.9% 250ML IRRIG IR SCH ×6 (03:19→23:45)
[2018-04-23] MEDS: ONDANSETRON HCL INJ 2MG/ML 2ML 2 MG/ML VIAL IV PRN ×3 (03:43→16:58)
[2018-04-23 04:49] LABS: BASOPHILS % 0.1 % (0.0-1.0); HEMATOCRIT 36.8 % (34.2-44.1); HEMOGLOBIN 12.3 g/dL (12.0-16.0); LYMPHOCYTES # (AUTO) 0.5 (1.0-3.2); LYMPHOCYTES % 4.3 % (18.0-39.1); MEAN CORPUSCULAR HEMOGLOBIN 32.4 pg (28-32); MEAN CORPUSCULAR HGB CONC 33.4 g/dL (31-35); MEAN CORPUSCULAR VOLUME 96.8 fL (81-99); MONOCYTES # (AUTO) 0.5 (0.2-0.8); MONOCYTES % 4.3 % (4.4-11.3); NEUTROPHILS # (AUTO) 10.6 (2.1-6.9); NEUTROPHILS % 90.6 % (38.7-80.0); PLATELET COUNT 169 x10e3/uL (140-360); RED CELL DISTRIBUTION WIDTH 13.5 % (11.7-14.4)
[2018-04-23 05:15] LABS: ALANINE AMINOTRANSFERASE 93 IU/L (0-55); ALBUMIN 2.5 g/dL (3.5-5.0); ALKALINE PHOSPHATASE 45 IU/L (40-150); ANION GAP 13.2 mmol/L (8-16); BLOOD UREA NITROGEN 23 mg/dL (7-26); BUN/CREATININE RATIO 33 (6-25); CALCIUM 8.8 mg/dL (8.4-10.2); CARBON DIOXIDE 20 mmol/L (22-29); CHLORIDE 111 mmol/L (98-107); CREATININE, SERUM 0.69 mg/dL (0.57-1.11); EST GLOMERULAR FILTRATION RATE > 60 ML/MIN (60-); GLUCOSE 121 mg/dL (74-118); POTASSIUM 3.2 mmol/L (3.5-5.1); SODIUM 141 mmol/L (136-145)
[2018-04-23] MEDS: SODIUM CHLORIDE 0.9% 1000ML 1,000 ML IV SCH ×3 (05:52→20:01)
--- NOTE | 2018-04-23 06:00 | NUR ---
Throughout the shift pink turning wedge placed multiple times but usually within 30 minutes the pts sister would encourage the pt to ask to have it removed. Multiple times I explained that by turning the pt we are trying to prevent the development of pressure wounds (bed sores) and each time the pt and her sister would acknowledge their understanding of this, I explained that turning side to side at least every two hours and keeping the HOB no higher than 30 degrees was protocol. The pts sister (after these attempts) continued to question the pt about the wedge turning/placement and HOB height and each time the pt would ask to have the wedge removed and the HOB elevated to about 40 to 45 degrees. An alternating pressure mattress is in use as well as pillows.
--- NOTE | 2018-04-23 06:52 | NUR ---
Bedside report given to Madisyn Acosta RN. No signs of distress noted at this time. Pts sister at the bedside.
[2018-04-23] MEDS ORDERED: SODIUM CHLORIDE 0.9% 250ML 0 ML ONE (09:15)
--- NOTE | 2018-04-23 11:32 | NUR ---
MD Gerard Iraheta has not yet rounded in ICU. Paged for orders regarding electrolyte replacement, GI prophylaxis, RLS, and bladder spasms. Awaiting response.
[2018-04-23] MEDS ORDERED: POTASSIUM CHLORIDE 20MEQ/100ML 100 ML IV ONE (12:30)
[2018-04-23] MEDS: ACETAMINOPHEN 1000 MG/100 ML IV PRN ×2 (13:45→20:45)
--- NOTE | 2018-04-23 19:30 | NUR ---
Receiving notes entered at a wrong time 04/23/18 at 0122.
--- NOTE | 2018-04-23 20:30 | NUR ---
patient helped to sit at the side of the bed and stand beside the bed. Finally settled in bed after 30 mins. Remains stable but in pain. Given acetaminophen IV for pain
[2018-04-23] MEDS ORDERED: HYDROMORPHONE 0.2MG/ML-SOD CHL 30ML PCA SYRINGE IV ONE (22:09)
[2018-04-24] VITALS (23 sets, daily range): BP systolic 113–169; BP diastolic 63–96
[2018-04-24] MEDS: SODIUM CHLORIDE 0.9% 250ML IRRIG IR SCH ×5 (03:45→20:32)
[2018-04-24 04:28] LABS: BASOPHILS % 0.2 % (0.0-1.0); EOSINOPHILS % 0.1 % (0.0-6.0); HEMATOCRIT 30.8 % (34.2-44.1); HEMOGLOBIN 10.2 g/dL (12.0-16.0); LYMPHOCYTES # (AUTO) 0.6 (1.0-3.2); LYMPHOCYTES % 6.5 % (18.0-39.1); MEAN CORPUSCULAR HEMOGLOBIN 31.6 pg (28-32); MEAN CORPUSCULAR HGB CONC 33.1 g/dL (31-35); MEAN CORPUSCULAR VOLUME 95.4 fL (81-99); MONOCYTES # (AUTO) 0.4 (0.2-0.8); MONOCYTES % 4.5 % (4.4-11.3); NEUTROPHILS # (AUTO) 8.6 (2.1-6.9); NEUTROPHILS % 88.3 % (38.7-80.0); PLATELET COUNT 209 x10e3/uL (140-360); RED BLOOD COUNT 3.23 x10e6/uL (3.6-5.1); RED CELL DISTRIBUTION WIDTH 13.7 % (11.7-14.4)
[2018-04-24 04:48] LABS: ALANINE AMINOTRANSFERASE 60 IU/L (0-55); ALBUMIN 2.3 g/dL (3.5-5.0); ALBUMIN/GLOBULIN RATIO 0.9 (0.8-2.0); ALKALINE PHOSPHATASE 40 IU/L (40-150); ANION GAP 12.1 mmol/L (8-16); BLOOD UREA NITROGEN 21 mg/dL (7-26); BUN/CREATININE RATIO 33 (6-25); CALCIUM 8.5 mg/dL (8.4-10.2); CARBON DIOXIDE 21 mmol/L (22-29); CHLORIDE 116 mmol/L (98-107); CREATININE, SERUM 0.64 mg/dL (0.57-1.11); EST GLOMERULAR FILTRATION RATE > 60 ML/MIN (60-); GLUCOSE 104 mg/dL (74-118); POTASSIUM 3.1 mmol/L (3.5-5.1); SODIUM 146 mmol/L (136-145)
[2018-04-24] MEDS: SODIUM CHLORIDE 0.9% 1000ML 1,000 ML IV SCH ×2 (05:00→14:31)
[2018-04-24] MEDS: PIPER-TAZ 3.375 GM 50 ML IV SCH ×4 (06:00→17:45)
[2018-04-24] MEDS: METRONIDAZOLE 500MG/NS 100ML 100 ML IV SCH ×4 (06:00→17:26)
--- NOTE | 2018-04-24 06:00 | NUR ---
Sol catheter removed, patient calm and stable. Assisted to sit on a bedside commode and back to bed, no complaints raised
--- NOTE | 2018-04-24 07:11 | NUR ---
Patient handed over stable
--- NOTE | 2018-04-24 07:11 | NUR ---
BEDSIDE REPORT RECVD. ASSESSMENT COMPLETED AND RECORDED. VSS. PT AND FAMILY IN ROOM. REVIEWED CURRENT POC. THEY VERBALIZE UNDERSTANDING AND CONSENT. PT SPEAKING THROUGH FAMILY, FLAT AFFECT AND DOES NOT WISH TO PARTICIPATE DIRECTLY WITH CARE, DOES NOT WISH TO ANSWER QUESTIONS OR OBEY SIMPLE COMMANDS. PT HAS A/C TECH PRN AND USES IT NEEDED.
--- NOTE | 2018-04-24 09:00 | NUR ---
DR Parish HARRISON MAKING ROUNDS. OK FOR PT TO GO TO IMCU IF OK WITH DR DE LENÓ. PT IS SITTING ON SIDE OF BED AND INTERMITTENTLY SITTING ON BSC. UNABLE TO VOID AT THIS TIME. ORDERS RECVD AND BEING COMPLETED.
[2018-04-24] MEDS ORDERED: POTASSIUM CHLORIDE 20MEQ/100ML 200 ML IV ONE (09:30)
--- NOTE | 2018-04-24 12:00 | NUR ---
pt voided, tolerates oob fair. instructed family regarding rn telehealth that pt must be the one pressing the button and not the family. they verbalize understanding.
--- NOTE | 2018-04-24 14:33 | NUR ---
dr scherer making rounds. ok [facility] no tele. called dr ivana guillen with information. he gave orders for medsurg. pt and family informed.
--- NOTE | 2018-04-24 14:56 | NUR ---
Nutrition Intervention Note RD Recommendation(s) for Physician: - Per surgeon's discretion, ADAT to goal of GI Soft - Recommend Ensure Clear TID when diet advanced - If unable to advance diet, consult nutrition for PN recommendations The patient meets criteria for MODERATE protein-calorie malnutrition. Plan of Care: RD following, monitoring for tolerance and adequacy Nutrition reason for involvement: Follow up RD Assessment 04/24: Chart reviewed. Pt is s/p ex-lap, vagotomy, antrectomy with Roun-en-Y reconstruction on 04/22. POD 2. Visited pt in the room. NGT on suction, still draining dark fluids. NPO x 4 days. Currently on IVF and KCl. Pt has some swelling of BUE, notified RN Kamini. Pt speaking through sister, flat affect and does not wish to answer questions. Some complains of nausea and meds were given without resolution. No vomiting episode noted. Flatus absent, per chart. 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 Pt has had poor PO intake ROSS CARRIER DRIVER. Sister reports pt lost ~30lbs in the last 6-8 months, which is severe. No physical sign of malnutrition upon NFPA. Will continue to monitor and follow. 04/22: 62 YOF admitted for acute gastric perforation, evaluated today per [facility] trigger. Pt out of room for GI surgery at time of visit for ex-lap and "part of stomach to be removed" per RN during am rounds. Prior to surgery pt had NGT to LIWS with brown output. Pt with significant GI PMH. Unable to obtain nutrition hx at this time. Chart reviewed. Will continue to monitor. Principal Problems/Diagnoses: acute gastric perforation PMH: acute gastritis, Childers's esophagus, diverticulosis of large intestine, GERD, esophagitis, gastroenteritis GI: + NGT to LIWS, + gastric perforation s/p ex-lap gastric drainage of 100 ml per chart Skin: abdominal incision Labs: 04/24: Na 146 H, K 3.1 L 04/22: Na 139, K 3.5, BUN 23, Cr 0.82, Gluc 101, Ca 8.6, AST 61, ALT 110 Meds: NaCl Ht: 67 in Wt: 172 lb 04/22, 186lb 04/24 (inconsistent weight taken since admission) BMI: 26.9 IBW: 135 lb Malnutrition Evaluation (04/24/18) The patient meets criteria for MODERATE protein-calorie malnutrition. Energy intake: <75% of estimated energy requirements for >3 months Weight loss: >10% in 6 months (Chronic) Fat loss: None Muscle loss: None Supporting Evidence: Fluid accumulation: Moderate swelling of BUE per observation Functional Status: no changes Malnutrition Evaluation (04/22/18) The patient does not meet criteria for a specified degree of malnutrition at this time. Will re-evaluate at follow-up as appropriate. Pt out of room at time of visit, unable to assess at this time- will re-assess on follow up. Nutrition Prescription (Diet Order): NPO Estimated Nutritional Needs: 7984-4074 calories/day (18-20 kcal/kg CBW) 78-117 g protein/day (1-1.5 g pro/kg CBW) Diet Adequacy: Not meeting calorie needs, Not meeting protein needs Diet Education Needs Assessment: Diet education not indicated, patient on temporary/transition diet. Nutrition Care Level: High Nutrition Diagnosis: Inadequate energy intake and protein intake related to gastric perforation as evidenced by NPO and requiring surgical intervention. Goal: Patient will meet 75-100% of estimated needs by follow up Progress: N/A Interventions: Fluid and fiber modified diet, Commercial beverage, Collaboration with other providers Monitoring/Evaluation: Total energy intake, Total protein intake, Modified diet, Liquid supplement Signed: Millie Almanza, MS, RD, LD
--- NOTE | 2018-04-24 17:00 | NUR ---
pt intermittently forgetful of current poc. requesting to drink water, reviewed npo status and recent sx. no bowel sounds and no flatus reported. family at bedside all reminding her of poc.
--- NOTE | 2018-04-24 18:05 | NUR ---
no changes in pt condition or care.
[2018-04-24] MEDS: BISACODYL 10 MG SUPP PR SCH (20:34)
[2018-04-25] VITALS (12 sets, daily range): BP systolic 137–178; BP diastolic 74–126
--- NOTE | 2018-04-25 00:14 | NUR ---
PATIENTs RIGHT AC IV SITE BECOMING INFLAMED. UNSUCCESSFUL ATTEMPTS X3 TO START IV. GALINDO ABURTO-CHARGE NURSE ATTEMPTED X1. INFORMED DR Pepe HARRISON WHEN HE ROUNDED AT 2330. VERBAL ORDER OBTAINED FOR PICC LINE INSERTION DUE TO POOR ACCESS STAT, TO OBTAIN CONSENT. EDUCATED PATIENTs SPOUSE ON PICC LINE INSERTION AND POSSIBLE SIDE AFFECTS OF INSERTION. CONSENT OBTAIN FROM SPOUSE DUE TO PATIENTs AMS STATUS. RADIOLOGY INFORMED BY GALINDO ABURTO AND ORDER PLACED BY GALINDO ABURTO
[2018-04-25] MEDS: SODIUM CHLORIDE 0.9% 250ML IRRIG IR SCH ×7 (00:37→23:45)
[2018-04-25] MEDS: SODIUM CHLORIDE 0.9% 1000ML 1,000 ML IV SCH ×3 (00:37→16:15)
[2018-04-25] MEDS: METRONIDAZOLE 500MG/NS 100ML 100 ML IV SCH ×4 (00:37→17:19)
[2018-04-25] MEDS: PIPER-TAZ 3.375 GM 50 ML IV SCH ×5 (00:37→23:40)
--- NOTE | 2018-04-25 05:03 | Diagnostic Imaging Report ---
CHEST XRAY LINE PLACEMENT, 04/25/2018 4:27 AM Technique: CHEST XRAY LINE PLACEMENT Comparison: 04/20/2018 Clinical history: PICC placement Findings: See Impression Impression: Degraded by motion artifact and portable technique. 1. Lines/Tubes: Subdiaphragmatic visualized NG tube, side port over the expected distal esophagus. Right PICC seen to the level of the expected central right brachiocephalic vein, limited by technique/motion. 2. Stable cardiomediastinal silhouette. 3. Motion artifact with likely bibasilar atelectasis. No large effusion or pneumothorax. Signed by: Dr Poornima Norman MD on 04/25/2018 4:59 AM
--- NOTE | 2018-04-25 05:24 | Diagnostic Imaging Report ---
CHEST XRAY LINE PLACEMENT, 04/25/2018 5:01 AM Technique: CHEST XRAY LINE PLACEMENT Comparison: Previous x-ray Clinical history: PICC line placement Findings: See Impression. Skin stevenson overlie the upper abdomen. Impression: Portable radiograph with improved motion artifact from prior. 1. Lines/Tubes: Right PICC seen projecting over the proximal SVC, tip slightly obscured over the spine. NG tube again noted with side port over the distal esophagus and tip over the proximal stomach. 2. Persistent mild bibasilar opacity, favor atelectasis. No pneumothorax. Signed by: Dr Poornima Norman MD on 04/25/2018 5:21 AM
[2018-04-25 06:12] LABS: BASOPHILS % 0.3 % (0.0-1.0); EOSINOPHILS % 0.1 % (0.0-6.0); HEMOGLOBIN 10.3 g/dL (12.0-16.0); LYMPHOCYTES # (AUTO) 0.7 (1.0-3.2); LYMPHOCYTES % 8.4 % (18.0-39.1); MEAN CORPUSCULAR HEMOGLOBIN 32.4 pg (28-32); MEAN CORPUSCULAR HGB CONC 34.3 g/dL (31-35); MEAN CORPUSCULAR VOLUME 94.3 fL (81-99); MONOCYTES # (AUTO) 0.5 (0.2-0.8); MONOCYTES % 6.8 % (4.4-11.3); NEUTROPHILS # (AUTO) 6.5 (2.1-6.9); NEUTROPHILS % 83.8 % (38.7-80.0); PLATELET COUNT 229 x10e3/uL (140-360); RED BLOOD COUNT 3.18 x10e6/uL (3.6-5.1); RED CELL DISTRIBUTION WIDTH 13.6 % (11.7-14.4)
[2018-04-25 06:23] LABS: ALANINE AMINOTRANSFERASE 47 IU/L (0-55); ALBUMIN 2.5 g/dL (3.5-5.0); ALKALINE PHOSPHATASE 42 IU/L (40-150); ANION GAP 13.9 mmol/L (8-16); BLOOD UREA NITROGEN 17 mg/dL (7-26); BUN/CREATININE RATIO 28 (6-25); CALCIUM 8.4 mg/dL (8.4-10.2); CARBON DIOXIDE 24 mmol/L (22-29); CHLORIDE 114 mmol/L (98-107); CREATININE, SERUM 0.61 mg/dL (0.57-1.11); EST GLOMERULAR FILTRATION RATE > 60 ML/MIN (60-); GLUCOSE 102 mg/dL (74-118); SODIUM 149 mmol/L (136-145)
--- NOTE | 2018-04-25 06:24 | NUR ---
PATIENT DOES TURN SELF BUT AT TIMES HAS TO BE ENCOURAGED. STATES THAT HE CLEANED UP AFTER THE BM STATES THAT WAS SMALL FORMED BUT LOOKED LIKE IT HAD MUCUS IN IT.
[2018-04-25 06:25] LABS: POTASSIUM 2.9 mmol/L (3.5-5.1)
--- NOTE | 2018-04-25 06:26 | NUR ---
RECEIVED PHONE CALL FROM LAB FOR CRITICAL KCL OF 2.[address] Parish HARRISON PAGED
--- NOTE | 2018-04-25 07:10 | NUR ---
DR BUCHANAN COLOR WORKER FOR ATTENDING. INFORMED HIM OF KCL AND BRIEF UPDATE ON THIS PATIENT. VORB AND CONFIRMED IS TO GIVE KCL 40MEQ IV OVER 2HOURS AND FOR US TO ASK DR Filomena DE LEÓN TO STOP RECEPTION AGENT. ORDER WILL BE PLACED AND INFORMED SOLEDAD ABURTO OF THIS ORDER
--- NOTE | 2018-04-25 07:10 | NUR ---
BEDSIDE REPORT RECVD. ASSESSMENT COMPLETED AND RECORDED. PT VERBALIZES UNDERSTANDING OF POC HOWEVER IS DEMANDING WATER BEING NPO. AT BEDSIDE. PT IS UP AND DOWN IN BED AND MULT ATTEMPT TO DRINK WATER THAT MAY BE AROUND ROOM. APPROPRIATELY CLEANED AND FLUSHED NG. LINEN CHANGED, GOWN CHANGED FROM INCONTINENCE ON BED.
[2018-04-25] MEDS ORDERED: POTASSIUM CHLORIDE 20MEQ/100ML 200 ML IV ONE (07:15)
[2018-04-25] MEDS: BISACODYL 10 MG SUPP PR SCH ×3 (08:09→20:25)
--- NOTE | 2018-04-25 09:20 | NUR ---
PT SEEN UP OOB. SHE STATES SHE VOIDED ON BED, GOT PT ON BSC AND CHANGED LINEN AND GOWN. PT VERBALIZES NO RELEIF FROM PAIN, STATES CONTINUOUSLY TO BE AT LEVEL 10 OF PAIN. DOES NOT CALL FOR HELP. INTERMITTENTLY ASKS FOR HELP FOR HER. FLAT AFFECT AND NON COMPLIANT.
--- NOTE | 2018-04-25 10:56 | NUR ---
DR WOODWARD MAKING ROUNDS, UPDATED ON STATUS. HE UPDATED FAMILY ON CURRENT STATUS AND POC.
--- NOTE | 2018-04-25 13:10 | NUR ---
dr campbell making rounds. updated on pt status. no new orders at this time
--- NOTE | 2018-04-25 13:53 | NUR ---
report given to gustavo. transfer to 103 family at bedside.
--- NOTE | 2018-04-25 14:24 | NUR ---
Received patient from ICU. Patient A/O X3, unlabored respirations on room air. NG tube to continuous suction. Bowel sounds hypoactive, passing gas. Abdominal pain 3/10 at this time, on DYE RANGE OPERATOR CLOTH pump with Dilaudid. Abdominal dressing clean, dry and intact. No signs of distress noted. Patient is ambulatory. Bed in lowest position, side rails up x2, wheels locked, call light in reach. Will continue to monitor.
[2018-04-25] MEDS ORDERED: HYDROMORPHONE 1MG/1ML INJ IV PRN (18:15)
--- NOTE | 2018-04-25 18:20 | NUR ---
Removed patients NG tube, tube intact, 250 ml discarded from canister.
--- NOTE | 2018-04-25 20:26 | NUR ---
REFUSED DULCOLAX SUPPOSITORY. PT VOICED HAVING MODERATE SOFT BM.
[2018-04-25] MEDS ORDERED: GABAPENTIN600 MG PO (21:14)
[2018-04-25] MEDS ORDERED: PANTOPRAZOLE SO40 MG PO (21:39)
--- NOTE | 2018-04-25 21:42 | NUR ---
SPOKE TO DR. BUCHANAN COVERING FOR DR. Parish HARRISON AT THIS TIME REGARDING HOME MEDS AND PT REQUEST FOR SLEEPING MED. NEW ORDER RCV TO CONTINUE HOME MEDS AND PRN RESTORIL.
[2018-04-25] MEDS ORDERED: HYDROCODONE/APAP 5MG-325MG TAB PO PRN (21:45)
[2018-04-25] MEDS ORDERED: OLMESARTAN PO (21:53)
[2018-04-25] MEDS ORDERED: AMLODIPINE PO (21:53)
[2018-04-25] MEDS ORDERED: EZETIMIBE PO (21:56)
[2018-04-25] MEDS ORDERED: SIMVASTATIN PO (21:56)
[2018-04-25] MEDS ORDERED: TEMAZEPAM 15 MG CAP PO PRN (22:00)
[2018-04-25] MEDS ORDERED: AMLODIPINE PO SCH (22:00)
[2018-04-25] MEDS ORDERED: NON-FORMULARY MEDICATION (Gabapentin 1,200 MG) PO SCH (22:00)
[2018-04-25] MEDS ORDERED: OLMESARTAN PO SCH (22:00)
[2018-04-25] MEDS ORDERED: NON-FORMULARY MEDICATION (Metoprolol Succinate 100 MG) PO SCH (22:00)
[2018-04-25] MEDS: HYDROMORPHONE 2MG/ML 2 MG/ML ML IV PRN (23:22)
[2018-04-25] MEDS: AMLODIPINE BESYLATE 5 MG TAB PO SCH (23:36)
[2018-04-25] MEDS: OLMESARTAN 20 MG TAB PO SCH (23:36)
[2018-04-26] VITALS (8 sets, daily range): BP systolic 140–178; BP diastolic 68–92
[2018-04-26] MEDS: SODIUM CHLORIDE 0.9% 1000ML 1,000 ML IV SCH ×2 (03:21→10:35)
[2018-04-26] MEDS: SODIUM CHLORIDE 0.9% 250ML IRRIG IR SCH (03:45)
[2018-04-26] MEDS: HYDROMORPHONE 2MG/ML 2 MG/ML ML IV PRN ×3 (05:50→19:28)
[2018-04-26 05:51] LABS: BASOPHILS % 0.4 % (0.0-1.0); EOSINOPHILS % 0.3 % (0.0-6.0); HEMATOCRIT 30.8 % (34.2-44.1); HEMOGLOBIN 10.5 g/dL (12.0-16.0); LYMPHOCYTES # (AUTO) 1.3 (1.0-3.2); LYMPHOCYTES % 16.4 % (18.0-39.1); MEAN CORPUSCULAR HEMOGLOBIN 32.2 pg (28-32); MEAN CORPUSCULAR HGB CONC 34.1 g/dL (31-35); MEAN CORPUSCULAR VOLUME 94.5 fL (81-99); MONOCYTES # (AUTO) 0.6 (0.2-0.8); MONOCYTES % 7.3 % (4.4-11.3); NEUTROPHILS # (AUTO) 5.9 (2.1-6.9); NEUTROPHILS % 74.5 % (38.7-80.0); PLATELET COUNT 222 x10e3/uL (140-360); RED BLOOD COUNT 3.26 x10e6/uL (3.6-5.1); RED CELL DISTRIBUTION WIDTH 13.8 % (11.7-14.4)
[2018-04-26] MEDS: PIPER-TAZ 3.375 GM 50 ML IV SCH ×4 (06:05→23:40)
[2018-04-26 06:11] LABS: ALANINE AMINOTRANSFERASE 38 IU/L (0-55); ALBUMIN 2.6 g/dL (3.5-5.0); ALBUMIN/GLOBULIN RATIO 1.1 (0.8-2.0); ALKALINE PHOSPHATASE 42 IU/L (40-150); ANION GAP 12.9 mmol/L (8-16); BLOOD UREA NITROGEN 15 mg/dL (7-26); BUN/CREATININE RATIO 24 (6-25); CALCIUM 8.4 mg/dL (8.4-10.2); CARBON DIOXIDE 25 mmol/L (22-29); CHLORIDE 111 mmol/L (98-107); CREATININE, SERUM 0.62 mg/dL (0.57-1.11); EST GLOMERULAR FILTRATION RATE > 60 ML/MIN (60-); GLUCOSE 94 mg/dL (74-118); SODIUM 146 mmol/L (136-145)
[2018-04-26 06:13] LABS: POTASSIUM 2.9 mmol/L (3.5-5.1)
[2018-04-26] MEDS ORDERED: ASPIRIN CHEW81 MG PO (06:40)
--- NOTE | 2018-04-26 06:44 | NUR ---
PAGED DR. Parish HARRISON AT THIS TIME REGARDING CRITICAL POTASSIUM LEVEL. AWAITING CALLBACK.
--- NOTE | 2018-04-26 07:18 | NUR ---
Received patient and walking rounds complete. Patient asleep in bed at this time, no signs of distress noted. Bed in lowest position, wheels locked, side rails up x2, call light in reach. Will continue to monitor.
[2018-04-26] MEDS ORDERED: POTASSIUM CHLORIDE 20 MEQ TAB CR PO STA (07:48)
[2018-04-26] MEDS: BISACODYL 10 MG SUPP PR SCH (07:49)
--- NOTE | 2018-04-26 07:51 | NUR ---
New order for potassium replacement. Orders noted
[2018-04-26] MEDS: PANTOPRAZOLE SOD 40 MG TABEC PO SCH (08:21)
[2018-04-26] MEDS: FLUOXETINE HCL 20 MG CAP PO SCH (08:21)
[2018-04-26] MEDS: SIMVASTATIN 20 MG TAB PO SCH (08:21)
[2018-04-26] MEDS: AMLODIPINE BESYLATE 5 MG TAB PO SCH (08:21)
[2018-04-26] MEDS: EZETIMIBE 10 MG TAB PO SCH (08:21)
[2018-04-26] MEDS: GABAPENTIN 300 MG CAP PO SCH (08:21)
[2018-04-26] MEDS: OLMESARTAN 20 MG TAB PO SCH (08:21)
[2018-04-26] MEDS ORDERED: ASPIRIN 81 MG CHEW TAB PO SCH (09:00)
[2018-04-26] MEDS ORDERED: EZETIMIBE PO SCH (09:00)
[2018-04-26] MEDS ORDERED: SIMVASTATIN PO SCH (09:00)
[2018-04-26] MEDS ORDERED: NON-FORMULARY MEDICATION (Gabapentin 600 MG) PO SCH (09:00)
[2018-04-26] MEDS ORDERED: POTASSIUM CHLORIDE 20 MEQ TAB CR PO ONE ×2 (10:00→12:00)
--- NOTE | 2018-04-26 10:20 | NUR ---
Patient A/O x3, respirations even and unlabored on room air. Patient passing gas and had a bowel movement overnight. Patient is ambulatory with assist. Abdominal dressing is clean, dry, and intact. Right PICC line with NS running. Redness to bottom area, applied barrier cream. Ambulated with patient down to the nursing station and back with walker. No signs of distress at this time. Will continue to monitor.
[2018-04-26] MEDS: ONDANSETRON HCL INJ 2MG/ML 2ML 2 MG/ML VIAL IV PRN (15:25)
[2018-04-26] MEDS ORDERED: HYDROCODONE/APAP 5MG-325MG TAB PO PRN (17:45)
[2018-04-26] MEDS ORDERED: GABAPENTIN 400 MG CAP PO SCH (21:00)
[2018-04-26] MEDS ORDERED: OLMESARTAN PO SCH (21:00)
[2018-04-26] MEDS ORDERED: NON-FORMULARY MEDICATION (Metoprolol Succinate 100 MG) PO SCH (21:00)
[2018-04-26] MEDS ORDERED: METOPROLOL SUCCINATE 50 MG TAB XL PO SCH (21:00)
[2018-04-26] MEDS ORDERED: NON-FORMULARY MEDICATION (Gabapentin 1,200 MG) PO SCH (21:00)
[2018-04-26] MEDS ORDERED: AMLODIPINE PO SCH (21:00)
[2018-04-27] VITALS: BP 141/69
[2018-04-27 04:00] VITALS: BP 154/87
[2018-04-27] MEDS: PIPER-TAZ 3.375 GM 50 ML IV SCH ×3 (05:50→17:15)
[2018-04-27 06:00] LABS: BASOPHILS % 0.4 % (0.0-1.0); EOSINOPHILS # (AUTO) 0.1 (0.0-0.4); EOSINOPHILS % 1.5 % (0.0-6.0); HEMATOCRIT 29.9 % (34.2-44.1); LYMPHOCYTES # (AUTO) 1.5 (1.0-3.2); LYMPHOCYTES % 20.1 % (18.0-39.1); MEAN CORPUSCULAR HEMOGLOBIN 31.7 pg (28-32); MEAN CORPUSCULAR HGB CONC 33.4 g/dL (31-35); MEAN CORPUSCULAR VOLUME 94.9 fL (81-99); MONOCYTES # (AUTO) 0.5 (0.2-0.8); NEUTROPHILS # (AUTO) 5.3 (2.1-6.9); NEUTROPHILS % 70.1 % (38.7-80.0); PLATELET COUNT 241 x10e3/uL (140-360); RED BLOOD COUNT 3.15 x10e6/uL (3.6-5.1); RED CELL DISTRIBUTION WIDTH 14.1 % (11.7-14.4)
[2018-04-27 06:30] LABS: ALANINE AMINOTRANSFERASE 28 IU/L (0-55); ALBUMIN 2.3 g/dL (3.5-5.0); ALKALINE PHOSPHATASE 40 IU/L (40-150); ANION GAP 10.5 mmol/L (8-16); BLOOD UREA NITROGEN 11 mg/dL (7-26); BUN/CREATININE RATIO 20 (6-25); CARBON DIOXIDE 29 mmol/L (22-29); CHLORIDE 107 mmol/L (98-107); CREATININE, SERUM 0.56 mg/dL (0.57-1.11); EST GLOMERULAR FILTRATION RATE > 60 ML/MIN (60-); GLUCOSE 87 mg/dL (74-118); POTASSIUM 3.5 mmol/L (3.5-5.1); SODIUM 143 mmol/L (136-145)
[2018-04-27 08:19] VITALS: BP 152/79
[2018-04-27] MEDS: GABAPENTIN 300 MG CAP PO SCH (09:00)
[2018-04-27] MEDS: AMLODIPINE BESYLATE 5 MG TAB PO SCH (09:00)
[2018-04-27] MEDS: FLUOXETINE HCL 20 MG CAP PO SCH (09:00)
[2018-04-27] MEDS: EZETIMIBE 10 MG TAB PO SCH (09:00)
[2018-04-27] MEDS: SIMVASTATIN 20 MG TAB PO SCH (09:00)
[2018-04-27] MEDS: OLMESARTAN 20 MG TAB PO SCH (09:00)
[2018-04-27] MEDS: PANTOPRAZOLE SOD 40 MG TABEC PO SCH (09:00)
--- NOTE | 2018-04-27 09:00 | NUR ---
MAXIMILIANO CALLED DR. HARRISON OFFICE TO [facility] REGARDING PATIENT DISCHARGE PLAN. PENDING RETURN CALL FOR PATIENT PLAN OF CARE AND DISCHARGE PLAN.
--- NOTE | 2018-04-27 10:44 | NUR ---
Patient alert and responsive, denies pain, VSS, tolerated all meds and GI soft food, no c/o nausea and incision to abd intact and approximated, OOB and ambulating hallway as observed, will monitor.
[2018-04-27 10:51] VITALS: BP 152/79
[2018-04-27 12:51] VITALS: BP 154/72
[2018-04-27 15:49] VITALS: BP 134/74
--- NOTE | 2018-04-27 16:48 | NUR ---
Nutrition Intervention Note RD Recommendation(s) for Physician: - Per surgeon's discretion, ADAT to goal of GI Soft - If unable to advance diet to GI Soft within 24 hours, recommend Ensure Enlive TID The patient meets criteria for MODERATE protein-calorie malnutrition. Plan of Care: RD following, monitoring for tolerance and adequacy Nutrition reason for involvement: Follow up RD Assessment 04/27: Follow up. Pt tolerating full liquids with > 75% intake, plan to advance to GI soft for dinner this evening. Pt denies any abdominal pain or GI distress. Chart reviewed. Will monitor and continue to follow. 04/24: Chart reviewed. Pt is s/p ex-lap, vagotomy, antrectomy with Roun-en-Y reconstruction on 04/22. POD 2. Visited pt in the room. NGT on suction, still draining dark fluids. NPO x 4 days. Currently on IVF and KCl. Pt has some swelling of BUE, notified CRISELDA Suárez. Pt speaking through sister, flat affect and does not wish to answer questions. Some complains of nausea and meds were given without resolution. No vomiting episode noted. Flatus absent, per chart. No chewing or swallowing issue COFOUNDER. Pt has had poor PO intake COFOUNDER. Sister reports pt lost ~30lbs in the last 6-8 months, which is severe. No physical sign of malnutrition upon NFPA. Will continue to monitor and follow. 04/22: 62 YOF admitted for acute gastric perforation, evaluated today per MST trigger. Pt out of room for GI surgery at time of visit for ex-lap and "part of stomach to be removed" per RN during am rounds. Prior to surgery pt had NGT to LIWS with brown output. Pt with significant GI PMH. Unable to obtain nutrition hx at this time. Chart reviewed. Will continue to monitor. Principal Problems/Diagnoses: acute gastric perforation PMH: acute gastritis, Childers's esophagus, diverticulosis of large intestine, GERD, esophagitis, gastroenteritis GI: LBM 04/27 Skin: abdominal incision- healing, stevenson remain in place Labs: 04/27: na 143, K 3.5, BUN 11, Cr 0.56, Ca 8 04/24: Na 146 H, K 3.1 L 04/22: Na 139, K 3.5, BUN 23, Cr 0.82, Gluc 101, Ca 8.6, AST 61, ALT 110 Meds: abx, zocor, zetia, protonix, zofran Ht: 67 in Wt: 172 lb 04/22, 186lb 04/24 (inconsistent weight taken since admission) BMI: 26.9 IBW: 135 lb Malnutrition Evaluation (04/24/18) The patient meets criteria for MODERATE protein-calorie malnutrition. Energy intake: <75% of estimated energy requirements for >3 months Weight loss: >10% in 6 months (Chronic) Fat loss: None Muscle loss: None Supporting Evidence: Fluid accumulation: Moderate swelling of BUE per observation Functional Status: no changes Malnutrition Evaluation (04/22/18) The patient does not meet criteria for a specified degree of malnutrition at this time. Will re-evaluate at follow-up as appropriate. Pt out of room at time of visit, unable to assess at this time- will re-assess on follow up. Nutrition Prescription (Diet Order): Full liquids Estimated Nutritional Needs: 2882-2076 calories/day (18-20 kcal/kg CBW) 78-117 g protein/day (1-1.5 g pro/kg CBW) Diet Adequacy: Not meeting calorie needs, Not meeting protein needs- progressing Diet Education Needs Assessment: Diet education not indicated, patient on temporary/transition diet. Nutrition Care Level: Mod Nutrition Diagnosis: Inadequate energy intake and protein intake related to gastric perforation as evidenced by NPO and requiring surgical intervention. Goal: Patient will meet 75-100% of estimated needs by follow up Progress: progressing Interventions: Fluid and fiber modified diet, Commercial beverage, Collaboration with other providers Monitoring/Evaluation: Total energy intake, Total protein intake, Modified diet, Liquid supplement Signed: Edith Kasper RD, [place], [facility]
[2018-04-27] MEDS ORDERED: HYDROCODON-ACE1 EA12 PO (18:04)
--- NOTE | 2018-04-27 18:08 | NUR ---
Rounds by surgeon and orders to discharge patient. VSS, no c/o pains, prescriptions given to patient and discharge summary with education and contacts for f/u appt given to patient. PICC line removed and measuring 37cm same length on insertion, pressure dressing applied and tolerated well.
== END 2018-04-27 18:30 | disposition home or self-care (01) | DRG 326 ==
LOC: ER 15:16 → ERHOLD 20:33 → IMCU 04-21 18:12 → ICU 04-22 13:01 → MED/SURG 04-25 14:08
PROC: 0DB70ZZ Excision of Stomach, Pylorus, Open Approach (ICD-10-PCS; 2018-04-22)
PROC: 0D160ZA Bypass Stomach to Jejunum, Open Approach (ICD-10-PCS; 2018-04-22)
PROC: 008Q0ZZ Division of Vagus Nerve, Open Approach (ICD-10-PCS; principal; 2018-04-22 10:00)
DX: C16.2 Malignant neoplasm of body of stomach (principal); K25.1 Acute gastric ulcer with perforation; K31.1 Adult hypertrophic pyloric stenosis; N39.0 Urinary tract infection, site not specified; E44.1 Mild protein-calorie malnutrition; I10 Essential (primary) hypertension; K21.9 Gastro-esophageal reflux disease without esophagitis; Z90.49 Acquired absence of other specified parts of digestive tract; E78.5 Hyperlipidemia, unspecified; Z88.5 Allergy status to narcotic agent; F17.210 Nicotine dependence, cigarettes, uncomplicated; F41.9 Anxiety disorder, unspecified; E87.6 Hypokalemia; Z68.26 Body mass index [BMI] 26.0-26.9, adult
CPT/HCPCS: 36415; 36569; 51700; 71045; 74019; 74176; 80053; 81001; 82150; 82550; 82553; 82948; 83605; 83690; 83735; 84484; 85025; 85610; 85730; 86850; 86900; 87040; 87086; 88302; 88307; 88309; 88342; 93005; 99284; J1100; J2001; J2250; J2405; J2543; J3480; J7030; J7050

== ENCOUNTER → 2018-04-20 | Day surgery (SDC) | payer OTHER ==
[~2018-04-20] MED LIST changes: +AMLODIPINE PO; +ASPIRIN CHEW81 MG PO; -EPHEDRINE SULFATE INJ 50 MG/10 ML SYR IV ONE; +EZETIMIBE PO; -FENTANYL CITRATE/PF 100MCG/2 ML INJ IV ONE; +FENTANYL CITRATE/PF 100MCG/2 ML INJ ONE; +HYDROCODON-ACE1 EA12 PO; +HYDROMORPHO1 MG/1 ML IV; -HYOSCYAMINE SULFATE 0.5 MG/ML INJ IV ONE; -LIDOCAINE HCL 2% LOCAL INJ 5 ML SDV VIAL INJ ONE; -MIDAZOLAM HCL 2 MG/2 ML VIAL INJ ONE; +MIDAZOLAM HCL 2 MG/2 ML VIAL ONE; +OLMESARTAN PO; +PANTOPRAZOLE SO40 MG PO; -PROPOFOL IV EMULSION 10 MG/ML 50 ML VIAL IV ONE; +PROPOFOL IV EMULSION 10 MG/ML 50 ML VIAL ONE; +SIMVASTATIN PO
--- OUTSIDE RECORDS SUMMARY | 2018-04-20 05:53 | XMS REPORT | Clinical Summary ---
Author Author [facility] Address Unknown Phone Unavailable Care Team Providers Care Police Detective Name Role Phone Kana Campos MD PCP Allergies Comments Active Allergy Reactions Severity Noted Date Morphine GI Low 03/27/2018 Intolerance Medications End Date Status Medication Sig Dispensed Refills Start Date 04/26/2018 Active methocarbamol (ROBAXIN) Take 1 tablet 20 tablet 0 500 MG tablet (500 mg 8 total) by mouth 2 (two) times a day for 30 days. Active ibuprofen (ADVIL,MOTRIN) Take 1 tablet 30 tablet 0 600 MG tablet (600 mg 8 total) by mouth every 6 (six) hours as needed for mild pain for up to 30 doses. Active Problems Not on file Encounters Care Team Description Date Type Specialty Sofy Davila DO Fall, initial encounter (Primary Dx); Contusion of left ring finger without damage to nail, initial encounter 03/27/2018 Emergency Emergency Medicine after 04/19/2017 Social History Date Tobacco Use Types Packs/Day Years Used Current Every Day Smoker 1 Smokeless Tobacco: Never Used Alcohol Use Drinks/Week oz/Week Comments Yes socially Sex Assigned at Date Recorded Not on file Industry Job Start Date Occupation Not on file Not on file Not on file Travel End Travel History Travel Start No recent travel history available. Last Filed Vital Signs Time Taken Vital Sign Reading 03/27/2018 7:00 PM DIETARY SUPERVISOR Blood Pressure 147/81 03/27/2018 7:00 PM DIETARY SUPERVISOR Pulse 50 03/27/2018 7:00 PM DIETARY SUPERVISOR Temperature 36.3 C (97.4 F) 03/27/2018 7:00 PM DIETARY SUPERVISOR Respiratory Rate 20 03/27/2018 7:00 PM DIETARY SUPERVISOR Oxygen Saturation 98% - Inhaled Oxygen - Concentration 03/27/2018 5:09 PM DIETARY SUPERVISOR Weight 72.6 kg (160 lb) 03/27/2018 5:09 PM DIETARY SUPERVISOR Height 170.2 cm (5' 7") 03/27/2018 5:09 PM DIETARY SUPERVISOR Body Mass Index 25.06 Plan of Treatment Health Maintenance Due Date Last Done Comments CERVICAL CANCER SCREENING 1974 BREAST CANCER SCREENING 12/17/2003 COLON CANCER SCREENING 12/17/2003 SHINGLES VACCINES (1 of 12/17/2003 2) INFLUENZA VACCINE 11/12/2017 Procedures Comments Procedure Name Priority Date/Time Associated Diagnosis XR FINGER 2+ VW LEFT STAT 03/27/2018 5:[address] HEAD WO CONTRAST STAT 03/27/2018 5:27 PM DIETARY SUPERVISOR after 04/19/2017 Results * XR Finger 2+ Vw Left (03/27/2018 5:50 PM DIETARY SUPERVISOR) Narrative Performed At EXAMINATION:XR FINGER 2VW LEFT [facility] CLINICAL HISTORY:Fracturehand COMPARISON:None. FINDINGS: Three-view examination of the left ring finger performed. No fracture or dislocation. No bony destructive change. Moderate osteoarthritic narrowing at the DIP and PIP joint Similar degenerative joint space narrowing at the DIP and PIP joint of the third and fifth digits IMPRESSION: Degenerative osteoarthritic changes No acute bony abnormality left fourth digit [id number] Procedure Note Hm Interface, Radiology Results Incoming - 03/27/2018 5:56 PM DIETARY SUPERVISOR EXAMINATION: XR FINGER 2 VW LEFT CLINICAL HISTORY: Fracture hand COMPARISON: None. FINDINGS: Three-view examination of the left ring finger performed. No fracture or dislocation. No bony destructive change. Moderate osteoarthritic narrowing at the DIP and PIP joint Similar degenerative joint space narrowing at the DIP and PIP joint of the third and fifth digits IMPRESSION: Degenerative osteoarthritic changes No acute bony abnormality left fourth digit [id number] Performing Organization Address City/State/Zipcode Phone Number [facility] [address] [place] [address] * CT Head Wo Contrast (03/27/2018 5:27 PM DIETARY SUPERVISOR) Narrative Performed At EXAMINATION: CT HEAD WO CONTRAST [facility] CLINICAL HISTORY: traumaloc COMPARISON:None TECHNIQUE: Noncontrast CT of the brain was performed from the skull base to the vertex. Both soft tissue and bone reconstruction algorithms are interpreted. CT imaging was performed with iterative reconstruction techniques and/or automated exposure control to reduce radiation dose. FINDINGS: No intracranial hemorrhage, extra-axial collection, or mass-effect is seen.No acute cortical infarct is identified. No hyperdense vessel is seen. Mild involutional changes of the brain are noted. No air-fluid level is seen in the visualized portions of the paranasal sinuses. Mastoid air cells are clear. No fracture is seen. IMPRESSION: No acute intracranial abnormality identified. [id number] Procedure Note Hm Interface, Radiology Results Incoming - 03/27/2018 5:33 PM DIETARY SUPERVISOR EXAMINATION: CT HEAD WO CONTRAST CLINICAL HISTORY: trauma loc COMPARISON: None TECHNIQUE: Noncontrast CT of the brain was performed from the skull base to the vertex. Both soft tissue and bone reconstruction algorithms are interpreted. CT imaging was performed with iterative reconstruction techniques and/or automated exposure control to reduce radiation dose. FINDINGS: No intracranial hemorrhage, extra-axial collection, or mass-effect is seen. No acute cortical infarct is identified. No hyperdense vessel is seen. Mild involutional changes of the brain are noted. No air-fluid level is seen in the visualized portions of the paranasal sinuses. Mastoid air cells are clear. No fracture is seen. IMPRESSION: No acute intracranial abnormality identified. [facility]-[id number] Performing Organization Address City/State/Zipcode Phone Number [facility] [address] [place] [address] after 04/19/2017 Insurance Payer Benefit Subscriber ID Type Phone Address Plan / Group AETNA AETNA xxxxxxxxxx HMO HMO,POS,EP O, MC/EC Advance Directives Patient has advance care planning documents on file. For more information, stanley villegas contact: Satya Belcher [address] [place] [address]
[2018-04-20 08:50] VITALS: BP 140/76
--- NOTE | 2018-04-20 09:18 | Diagnostic Imaging Report ---
Abdomen/KUB INDICATION: Postop ^post pyloric channel dilation ^[id number] ^0850 ^patient in [facility] 12 COMPARISON: None. FINDINGS: Portable, supine image obtained at 0848 hours. Medical Devices: Cholecystectomy clips Bowel: There is air throughout the small bowel and large bowel without dilatation. There is mild gaseous distention of the stomach. No pneumatosis. Free air: None Calcifications: None Organomegaly: None Bones: Mild degenerative changes of the spine IMPRESSION: Unremarkable bowel gas pattern. No pneumatosis or pneumoperitoneum. Signed by: Dr. Evan Escalera MD on 04/20/2018 9:15 AM
--- NOTE | 2018-04-20 09:29 | Operative Report ---
DATE OF PROCEDURE: April 20, 2018 PROCEDURES PERFORMED: 1. Esophagogastroduodenoscopy with biopsies. 2. Pyloric channel dilatation. REFERRING PHYSICIAN: Dr. Kana Garcia INDICATIONS FOR EGD: Upper abdominal pain, bloating, history of pyloric channel stricture. MEDICATION: Patient was done under MAC. Please see anesthesiologist note. PROCEDURE IN DETAIL: With the patient in left lateral decubitus position, the flexible fiberoptic Olympus gastroscope was introduced into the esophagus under direct visualization without any difficulty. The esophagus appeared to be within normal limits. The scope was then advanced with ease into the stomach. Mucosa overlying the antrum and the body revealed some patchy intense erythema and moderate edema, and biopsies were obtained and sent to stain for H. pylori. An approximately 6-mm ulcer with heaped up margins without active bleeding or stigmata of recent hemorrhage was noted at the incisura anterior wall that was biopsied. The biopsies were also obtained from the antrum and the body. The pyloric channel was re-strictured and it was traversed with difficulty with the scope. The mucosa overlying the proximal second portion and the duodenal bulb appeared to be within normal limits. Pyloric channel stricture was then dilated to size 20 mm per TTS balloon dilators. The scope was then withdrawn back into the stomach and retroflexed. Mucosa overlying the fundus and the cardia appeared to be within normal limits. The scope was then straightened out. It was subsequently withdrawn. Patient tolerated the procedure well. IMPRESSION: 1. Normal esophagus. 2. Gastritis, biopsied. Biopsy sent to stain for Helicobacter pylori. 3. Gastric ulcer, approximately 6 mm, incisura anterior wall with heaped up margins, biopsied. PLAN: Follow up histology. Increase Protonix to 40 mg 1 p.o. a.c. b.i.d. Continue Carafate 1 g p.o. a.c. t.i.d. and nightly. Job#: [id number] cc:KANA GARCIA MD
== END | disposition home or self-care (01) ==
LOC: OR 05:51
PROVIDERS: ATTEND Internal Medicine Gastroenterology
DX: K20.9 Esophagitis, unspecified (principal); C16.8 Malignant neoplasm of overlapping sites of stomach; K29.50 Unspecified chronic gastritis without bleeding; B96.81 Helicobacter pylori [H. pylori] as the cause of diseases classified elsewhere; K31.89 Other diseases of stomach and duodenum; K57.90 Diverticulosis of intestine, part unspecified, without perforation or abscess without bleeding; I10 Essential (primary) hypertension; I44.0 Atrioventricular block, first degree; E78.5 Hyperlipidemia, unspecified; I83.90 Asymptomatic varicose veins of unspecified lower extremity; N20.0 Calculus of kidney; M54.9 Dorsalgia, unspecified; F41.9 Anxiety disorder, unspecified; F17.210 Nicotine dependence, cigarettes, uncomplicated; Z88.6 Allergy status to analgesic agent; Z79.82 Long term (current) use of aspirin; K31.1 Adult hypertrophic pyloric stenosis
CPT/HCPCS: 43239; 43245; 74018; C1726; J2250; 43450

== ENCOUNTER → 2020-07-05 | Outpatient (CLI) | payer MEDICARE, OTHER ==
[~2020-07-05] MED LIST changes: +AMLODIPINE PO; +ASPIRIN CHEW81 MG PO; +COVID-19 VACC, MRNA(MODERNA)/PF 100 MCG/0.5 ML VIAL IM ONE; +EZETIMIBE PO; +HYDROCODON-ACE1 EA12 PO; +HYDROMORPHO1 MG/1 ML IV; +OLMESARTAN PO; +PANTOPRAZOLE SO40 MG PO; +SIMVASTATIN PO
== END | disposition home or self-care (01) ==
LOC: VACCPMC 09:37
DX: Z23 Encounter for immunization (principal); Z20.822 Contact with and (suspected) exposure to COVID-19
CPT/HCPCS: 91301

== ENCOUNTER → 2020-08-02 | Outpatient (CLI) | payer MEDICARE, OTHER | END | disposition home or self-care (01) | LOC: VACCPMC 13:00 | DX: Z23 Encounter for immunization (principal); Z20.822 Contact with and (suspected) exposure to COVID-19 | CPT/HCPCS: 91301 ==